=== PATIENT | male | born 1960 | race Caucasian/White ===

== ENCOUNTER 2025-02-28 09:08 | Inpatient (IN) ==
--- NOTE | 2025-02-16 09:12 | Anesthesiology Consultation ---
Date of Service February 16, 2025 Assessment & Plan (1) Encounter for pre-operative examination: - Check BSG DOS - Infectious disease screening: Per assessment on 02/16/25- No known recent infectious disease contacts or current infectious disease symptoms. Chart Review Chart Review: Acceptable Risk for Surgery and Patient NOT seen in Pre Admission Testing History Surgery Operation Date: 02/28/25 11:30 Proposed Procedures p Laparoscopic Hand Assisted Radical Nephrectomy - Right - Davide Ellis MD Height/Weight Height: 6 ft Weight: 111.13 kg Allergies Allergy/AdvReac Type Severity Reaction Status Date / Time sulfamethoxazole [Bactrim] Allergy Severe Shortness Verified 02/16/25 09:08 of breath trimethoprim [Bactrim] Allergy Severe Shortness Verified 02/16/25 09:08 of breath Medications Home Medications Medication Instructions Recorded Confirmed Last Taken omeprazole 20 mg capsule,delayed 20 mg PO QAM 03/27/20 02/16/25 09/05/21 release sildenafil 100 mg tablet 100 mg PO DAILY PRN NEEDED 07/09/21 02/16/25 Unknown metformin 500 mg tablet,extended 500 mg PO PM 01/27/23 02/16/25 Unknown release 24hr (osmotic) tamsulosin 0.4 mg capsule 0.4 mg PO PM 02/10/24 02/16/25 Unknown celecoxib 100 mg capsule 100 mg PO BID 11/11/24 02/16/25 Unknown duloxetine 60 mg capsule,delayed 60 mg PO QAM 11/11/24 02/16/25 Unknown release lisinopril 20 mg tablet 10 mg PO HS 11/11/24 02/16/25 Unknown rosuvastatin 5 mg tablet 5 mg PO HS 11/11/24 02/16/25 Unknown carbidopa 25 mg-levodopa 100 mg 1 tab PO TID #90 tabs 12/14/24 02/16/25 Unknown tablet ropinirole 0.25 mg tablet 0.25 mg PO BID #60 tabs 12/14/24 02/16/25 Unknown Past Medical History Medical History Adrenal adenoma Dating back several years per chart review Most recent imaging: renal CT 02/03/25 "A 1.3 cm left adrenal nodule is unchanged since initial CT. This is likely benign" Arthritis Cervical spinal stenosis ROM WNL per pt Complex renal cyst Diabetes mellitus, type 2 Elevated cholesterol GERD (gastroesophageal reflux disease) Hypertension Parkinsonism RLS (restless legs syndrome) Scoliosis Sleep apnea No device Tremor of both hands Past Family History Family History Mother Family history of diabetes mellitus Grandmother (Maternal) Family history of diabetes mellitus Other No family history of adverse response to anesthesia Past Surgical History Surgical History History of arthroscopy right knee History of carpal tunnel release R/L History of colonoscopy History of esophagogastroduodenoscopy (EGD) History of tonsillectomy History of tooth extraction Social History Smoking Status: Never smoker tobacco type: smokeless tobacco Do You Dip or Chew Tobacco: No (remote hx) Hx Alcohol Use: Yes Alcohol type: beer alcohol intake frequency: holidays/special occasions only Hx Substance Use: No substance use type: does not use Lab Results Anesthesia Preop Results Results Anesthesia Widget: WBC 10.23 K/ul (4.8-10.8) 02/14/25 Hgb 15.8 g/dl (14.0-18.0) 02/14/25 Hct 46.7 % (42.0-52.0) 02/14/25 Plt 258 K/uL (130-400) 02/14/25 Na 140 mmol/L (136-145) 02/14/25 K 4.4 mmol/L (3.5-5.1) 02/14/25 Cl 103 mmol/L (98-107) 02/14/25 CO2 30 mmol/L (21-32) 02/14/25 BUN 19 mg/dl (6-23) 02/14/25 Creat 1.33 mg/dl (0.6-1.4) 02/14/25 Glucose Level 177 mg/dl (70-99(Fasting)) H 02/14/25 Testing Laboratory Results Urine culture (02/14/25): no growth (preliminary) Electrocardiogram Date: 02/14/25 NSR at 99bpm. "Normal ECG" Chest X-Ray Date: 02/16/25 Findings: + NAD
[~2025-02-28 09:08] MED LIST: DEXAMETHASONE SOD INJ 4 MG/ML VIAL ONE; LIDOCAINE 2% 2 ML VIAL/AMP(20MG/ML) INFIL ONE; MIDAZOLAM HCL 1 MG/ML 2ML VIAL ONE; ONDANSETRON INJ 2 MG/ML 2 ML VIAL ONE; PROPOFOL IV EMULSION 10 MG/ML 20 ML VIAL IV ONE; ROCURONIUM BROMIDE 10 MG/ML 5 ML VIAL IV ONE
[2025-02-28] MEDS: LACTATED RINGER'S 1,000 ML IV SCH (09:39)
[2025-02-28] MEDS: HEPARIN SOD 5,000 UNIT/0.5 ML VIAL SC ONE (09:46)
[2025-02-28] MEDS: HEPARIN SOD 5,000 UNIT/0.5 ML VIAL SC SCH (09:47)
--- NOTE | 2025-02-28 10:34 | History & Physical Bridge Note ---
Date of Service February 28, 2025 History & Physical Bridge Note I have examined the patient, reviewed the History & Physical and in the interval since the performance of the History & Physical I have noted the following changes of clinical significance: no changes noted
[2025-02-28] MEDS ORDERED: LABETALOL HCL IV 5 MG/ML 20ML IV PRN (10:47)
[2025-02-28] MEDS ORDERED: PROMETHAZINE HCL 6.25 MG in SODIUM CHLORIDE 0.9% 50 ML IV PRN (10:47)
[2025-02-28] MEDS ORDERED: ATROPINE SULFATE 0.1 MG/ML 10ML SYR IV PRN (10:47)
[2025-02-28] MEDS ORDERED: ROCURONIUM BROMIDE 10 MG/ML 5 ML VIAL IV ONE (11:43)
[2025-02-28] MEDS ORDERED: PROPOFOL IV EMULSION 10 MG/ML 20 ML VIAL IV ONE (11:47)
[2025-02-28] MEDS ORDERED: PHENYLEPHRINE 100MCG/ML 5ML SYR ONE (12:08)
[2025-02-28] MEDS ORDERED: SUGAMMADEX SODIUM 200 MG/2 ML VIAL IV ONE ×2 (12:19)
[2025-02-28] MEDS: BUPIVACAINE LIPOSOME 1.3% 266 MG/20 ML VIAL ONE (12:52)
[2025-02-28] MEDS: SURGICEL ABSORB HEMOSTAT 2IN X 14IN TOP ONE (12:52)
[2025-02-28] MEDS: BUPIVACAINE 0.5 % 5 MG/1 ML MPF 30ML VIAL ONE (12:52)
[2025-02-28] MEDS: HYDROmorphone INJ 1 MG/ML SYRINGE IV PRN (13:15)
--- NOTE | 2025-02-28 13:55 | Anesthesiology Progress Note ---
Date of Service February 28, 2025 Anesthesia Post Procedure Vital Signs Vital Signs: Temp Pulse Pulse Resp BP Pulse Ox O2 Del Method 02/28/25 13:40 75 12 121/75 94 Nasal Cannula 02/28/25 13:30 76 18 123/95 97 Oxymask 02/28/25 13:20 71 18 130/76 93 Oxymask 02/28/25 13:10 36.0 C L 72 18 129/76 97 Oxymask 02/28/25 09:21 37.1 C 72 20 164/99 H 98 Room Air O2 Flow Rate 02/28/25 13:40 3 02/28/25 13:30 4 02/28/25 13:20 6 02/28/25 13:10 6 02/28/25 09:21 Pain Intensity Abdomen: Pain Intensity: 5 Transfer of Care Handoff Completed per policy Notes Mental Status: alert / awake / arousable Patient Amnestic to Procedure: Yes Nausea / Vomiting: adequately controlled Pain: adequately controlled Airway Patency, RR, SpO2: stable & adequate BP & HR: stable & adequate Hydration State: stable & adequate Anesthetic Complications: no major complications apparent
[2025-02-28 14:09] LABS: Hematocrit (blood only) 43.9 % (42.0-52.0); Hemoglobin 14.6 g/dl (14.0-18.0); Immature Granulocytes # (auto) 0.08 K/uL (0.01-0.20); Immature Granulocytes % (auto) 0.8 %; Mean Corpuscular Hemoglobin 29.2 pg (25.0-34.0); Mean Corpuscular Volume 87.8 fL (80.0-100.0); Platelet Count 203 K/uL (130-400); RDW Standard Deviation 39.9 fL (36.4-46.3); Red Blood Count 5.00 M/uL (4.70-6.10); White Blood Count 10.08 K/ul (4.8-10.8)
--- NOTE | 2025-02-28 14:09 | Operative Report ---
PG Post Operative Report Pre & Post Diagnosis Operation Date: 02/28/25 10:50 Pre-Op Diagnosis: mass of Right Kidney, suspected renal cell carcinoma Post-Op Diagnosis: mass or right kidney; suspected renal cell carcinoma I identified the patient and participated in the time-out.: Yes Procedure Operation Date: 02/28/25 10:50 Actual Procedures p Laparoscopic Hand Assisted Radical Nephrectomy - Right(Right) - Davide Ellis MD Surgeon Davide Ellis MD Pairing Machine Operator Benedicto Schneider Estimated Blood Loss 20 Findings Consistent with Post-Op Diagnosis Specimens Right kidneyroutine pathology Description of Procedure Patient was identified in the preoperative holding area and appropriate informed consents reviewed and completed the patient was transported to the operating suite. Upon arrival received appropriate preoperative antibiotics was placed in the left side down right side up lateral decubitus position with the bed flexed. He was padded and braced in appropriate fashion before sterile prep and drape. To begin the case a marked Patterson style incision of the right lower quadrant just below the level of umbilicus at incised from the lateral border of the rectus approximately 8 cm laterally on an angle. I carried this dissection through Stevenson's fascia and expose the external bleak fascia. I incised the external bleak fascia sharply and dissected through the muscle and fascial layers. I then performed the same procedure through the internal oblique as well as the transversalis. The transversalis was opened carefully and after opening the peritoneum I performed a finger sweep to confirm that there were no adhesions and bowel was clear before opening the remainder of the peritoneum further length of the incision. Utilizing retractors I was able to elevate the abdominal wall and incised the white line of Toldt below the kidney and carried this dissection up to the inferior pole. We then placed a GelPort retractor and hand access port. I was able to insufflate the abdomen through this utilizing a 12 mm port placed through the opening of the HandPort. I inspected the anterior abdominal wall and marked 2 potential port locations along the lateral border of the rectus, 1 just inferior to the costal margin another approximately 8 cm inferior to that. I then placed my hand into the abdomen and advanced these ports directly onto my hand. There is no traumatic injury. At that time I began the laparoscopic portion of the case. We continued our incision of the white line of Toldt and medialized the colon off of the kidney. The duodenum was kocherized as well. This freed the medial aspect of the kidney and I could visualize the IVC just under the liver. Before approaching the medial aspect of the kidney any further I incised the lateral portion of the kidney and the superior margin of the kidney to allow better mobility. I then dissected a plane below the kidney from the medial aspect onto the psoas muscle and utilized this to help elevate the kidney. I was able to advance my hand behind the kidney and stretch the hilar structures. Dissecting out the lateral border of the IVC I was able to encounter the inferior edge of the renal vein. I dissected around it and immediately palpated renal artery immediately posterior to the vein. I was able to expose the inferior aspect of the artery and visualize it. I passed a finger superior to the vascular structures from behind. This created an appropriate window. I then utilized a solitary staple load to control the artery and vein and block. A second staple load was fired between the medial aspect of the superior portion of the kidney and the adrenal gland. I then utilized the harmonic scalpel to continue my dissection around the superior medial aspect of the kidney followed by the true superior aspect and then ultimately the lateral aspect of the kidney. The kidney was entirely freed and there were no significant posterior adhesions. Inferiorly Gerota's fascia remained intact at that stage as did the ureter. The gonadal vein was spared. I dissected through Gerota's fascia until I was able to expose and skeletonized the ureter. I then controlled it utilizing the harmonic scalpel. Specimen was moved out of the field of dissection and hemostasis was excellent. I was able to extract the specimen through the GelPort. I then reinsufflated and inspected 1 last time confirming excellent hemostasis. We then proceeded to close the 2- 12 mm ports utilizing a Vicryl suture in a UR 6 needle. I sequentially closed the HandPort/extraction site. First utilizing a 0 Vicryl to reapproximate peritoneum and transversalis. I then used the 6-0 Vicryl to reapproximate the internal oblique. Another 0 Vicryl to reapproximate the external oblique. Stevenson's was reapproximated with 4 infiltrating all incisions with a mixture of Marcaine and Exparel. Skin incisions were closed utilizing 4-0 Monocryl subcuticular stitches. Dermabond was placed over the incisions. Patient was reversed of anesthesia and taken the recovery room in stable condition. There were no complications. Benedicto Schneider assisted throughout the surgery from incision to closure. There were no complications. I attest to the content of the Intraoperative Record and any orders documented therein. Any exceptions are noted below.
[2025-02-28] MEDS ORDERED: ONDANSETRON INJ 2 MG/ML 2 ML VIAL IV PRN (14:20)
[2025-02-28] MEDS ORDERED: HYDROmorphone INJ 0.5 MG/0.5 ML SYR IV PRN (14:20)
[2025-02-28 14:27] LABS: Anion Gap 8.0 (3-11); Blood Urea Nitrogen 26.0 mg/dl (6-23); Calcium 8.6 mg/dl (8.6-10.3); Carbon Dioxide 26.0 mmol/L (21-32); Chloride 107.0 mmol/L (98-107); Creatinine Clr Calc Pharmacy 88.5 ml/min; Glucose 159.0 mg/dl (70-99(Fasting)); Potassium 4.1 mmol/L (3.5-5.1); Sodium 141.0 mmol/L (136-145)
[2025-02-28] MEDS: SODIUM CHLORIDE 0.9% 1,000 ML IV SCH (15:14)
[2025-02-28] MEDS: CARBIDOPA/LEVODOPA 25/100MG TAB PO SCH (15:15)
[2025-02-28] MEDS: HYDROmorphone INJ 0.5 MG/0.5 ML SYR IV PRN (15:15)
[2025-02-28] MEDS: ROSUVASTATIN CALCIUM 5 MG TAB PO SCH (20:09)
[2025-02-28] MEDS: DOCUSATE SODIUM 100 MG CAP PO SCH (20:09)
[2025-02-28] MEDS: TAMSULOSIN HCL 0.4 MG CAP PO SCH (20:09)
--- NOTE | 2025-03-01 07:40 | Urology Progress Note ---
Date of Service March 01, 2025 Assessment & Plan (1) Renal mass: Plan Renal mass status post right radical nephrectomy Recovery so far is on pace Labs pending this morning Wallace out Ambulate Hold on clear liquid diet as he is mildly distended and has only passed a small amount of flatus Discharge planning will be determined based upon how he progresses this morningif uncomfortable and distended, likely keep for 1 more day, if he begins to feel better and passing flatus we will discharge him Admission and Anticipated Discharge Date Admission Date: February 28, 2025 Subjective Some abdominal discomfort overnight Passed a small amount of flatus which offered some relief Urine draining well through the catheter Has not ambulated yet Otherwise seems to be following the expected course Vitals all stable Physical Exam Physical Exam: Abdomen appropriately tender Mildly distended Incisions all appropriate without ecchymosis or drainage Wallace draining clear urine Results & Data Vital Signs (Past 12 Hours) Vital Signs Temp Pulse Resp BP Pulse Ox O2 Del Method O2 Flow Rate 03/01/25 07:17 36.8 C 79 16 141/81 H 94 Room Air 03/01/25 04:04 36.6 C 83 18 153/79 H 94 Room Air 02/28/25 22:57 36.8 C 77 18 154/82 H 96 Nasal Cannula 1.5 PG Care Time/CCT Total # of Minutes Spent Total Time Spent with Patient: Total time spent is greater than 50% in coordination of care (as documented) at patient's floor/unit and/or counseling patient: Coding Level of Care Code 75762 SUB INP/OBS CARE 2/35MIN Diagnoses Renal mass N28.89
[2025-03-01 07:48] LABS: Hematocrit (blood only) 40.3 % (42.0-52.0); Hemoglobin 13.4 g/dl (14.0-18.0); Immature Granulocytes # (auto) 0.06 K/uL (0.01-0.20); Immature Granulocytes % (auto) 0.5 %; Mean Corpuscular Hemoglobin 29.6 pg (25.0-34.0); Mean Corpuscular Volume 89.0 fL (80.0-100.0); Platelet Count 202 K/uL (130-400); RDW Standard Deviation 41.9 fL (36.4-46.3); Red Blood Count 4.53 M/uL (4.70-6.10); White Blood Count 11.15 K/ul (4.8-10.8)
[2025-03-01 08:03] LABS: Anion Gap 7.0 (3-11); Blood Urea Nitrogen 24.0 mg/dl (6-23); Calcium 8.1 mg/dl (8.6-10.3); Carbon Dioxide 27.0 mmol/L (21-32); Chloride 103.0 mmol/L (98-107); Creatinine Clr Calc Pharmacy 62.8 ml/min; Glucose 126.0 mg/dl (70-99(Fasting)); Potassium 4.0 mmol/L (3.5-5.1); Sodium 137.0 mmol/L (136-145)
[2025-03-01] MEDS: ACETAMINOPHEN 500 MG TAB PO PRN (09:22)
[2025-03-02 08:17] LABS: Hematocrit (blood only) 38.7 % (42.0-52.0); Hemoglobin 13.0 g/dl (14.0-18.0); Immature Granulocytes # (auto) 0.04 K/uL (0.01-0.20); Immature Granulocytes % (auto) 0.4 %; Mean Corpuscular Hemoglobin 29.6 pg (25.0-34.0); Mean Corpuscular Volume 88.2 fL (80.0-100.0); Platelet Count 183 K/uL (130-400); RDW Standard Deviation 40.9 fL (36.4-46.3); Red Blood Count 4.39 M/uL (4.70-6.10); White Blood Count 9.48 K/ul (4.8-10.8)
[2025-03-02 08:34] LABS: Anion Gap 6.0 (3-11); Blood Urea Nitrogen 19.0 mg/dl (6-23); Calcium 8.6 mg/dl (8.6-10.3); Carbon Dioxide 29.0 mmol/L (21-32); Chloride 102.0 mmol/L (98-107); Creatinine Clr Calc Pharmacy 59.7 ml/min; Glucose 134.0 mg/dl (70-99(Fasting)); Potassium 3.9 mmol/L (3.5-5.1); Sodium 137.0 mmol/L (136-145)
--- NOTE | 2025-03-02 09:16 | Urology Progress Note ---
Date of Service March 02, 2025 Assessment & Plan (1) Renal mass: Plan: POD 2 from Laparoscopic Hand Assisted Radical Nephrectomy hgb 13/Cr 1.63. blood pressure has been elevated Will try advancing his diet today Continue pain control Possible discharge home today Patient seen again today 11:30am. Doing well. Walking in the hallway. Feels ready for discharge. Oxycodone sent to his pharmacy. Discharge home today. Follow up as scheduled in approx 2 weeks Admission and Anticipated Discharge Date Admission Date: February 28, 2025 Subjective 64 year old POD 2 from right Laparoscopic Hand Assisted Radical Nephrectomy with Dr. Ellis. Sitting in the bedside chair this morning. Complains of some abdominal pain, abdominal pain when he takes a deep breath. He has been out of bed ambulating, passing flatus, has been able to urinate. Denies chest pain or shortness of breath. Physical Exam Physical Exam: alert and oriented. NAD. Sitting in bedside chair. Incisions well approximated. No drainage. Abdomen soft, mild tenderness particularly on the right side Respiratory: normal respiratory effort Results & Data Vital Signs (Past 12 Hours) Vital Signs Temp Pulse Resp BP Pulse Ox O2 Del Method 03/02/25 07:28 36.7 C 81 18 157/92 H 93 Room Air PG Care Time/CCT Total # of Minutes Spent Total Time Spent with Patient: Total time spent is greater than 50% in coordination of care (as documented) at patient's floor/unit and/or counseling patient: Coding Level of Care Code None Diagnoses Renal mass N28.89
--- NOTE | 2025-03-03 09:24 | Discharge Summary ---
Date of Service March 03, 2025 Principal Diagnosis Right renal mass Discharge Data Allergies Allergy/AdvReac Type Severity Reaction Status Date / Time sulfamethoxazole [Bactrim] Allergy Severe Shortness Verified 02/28/25 09:23 of breath trimethoprim [Bactrim] Allergy Severe Shortness Verified 02/28/25 09:23 of breath Procedures Performed Operation Date: 02/28/25 10:50 Actual Procedures p Laparoscopic Hand Assisted Radical Nephrectomy - Right(Right) - Davide Ellis MD Hospital Course (1) S/p nephrectomy: This is a 64 year old patient admitted on 02/28/25 and underwent laparoscopic hand assisted radical nephrectomy. He tolerated the procedure well and there were no complications. Transferred to the PACU post op and later to the med/surg floor for further care. He was given ancef for antibiotic prophylaxis. He was also given LOYDA stockings for DVT prophylaxis. Hemoglobin, hematocrit, and vital signs were monitored during their hospital stay and remained stable. Did not require any blood transfusions. There were no complications during their hospital stay. By post op day #2 the patient was tolerating a clear liquid diet and advancement of his diet, pain was reasonably controlled with oral pain medicine. On post op day #2 the patient was discharged home. He was given printed discharge instructions including new prescription for oxycodone. Follow up approximately 2 weeks post op or sooner if there are problems or concerns. Total Time Total Time Spent Total Time Spent (In Minutes): n/a Discharge Plan Discharge Items Patient Disposition: Home - Self-Care Reason For Visit: Cyst of Kidney, Unspecified Discharge Diagnosis: right nephrectomy Activity: Per Instructions section Non-emergency contact: Surgeon Call non-emergency contact if: you have any medication questions, your pain is not controlled, your pain is worsening, you have a fever, your temperature is above 101.5, your wound has increased redness and your wound has increased drainage Follow-up/Referrals: Brittany Mansfield [Primary Care Provider] - Diet: Regular Addtl Attending Provider Instructions: Please take all medications as prescribed and keep all follow-ups as scheduled. Please call our office at [phone] with any questions, concerns or need to reschedule appointments for any reason. We are happy to assist you. Recovering at home: We recommend having someone with you for the first few days after surgery to help care for you. It is okay to shower tomorrow. Please avoid swimming, bathing or using hot tub until incisions are well healed. Avoid driving until you are not requiring pain medication any further. Walk at least a few times a day. Increase your distance, as you feel able. Stairs in your home are okay. Please avoid strenuous or sexual activity until your follow-up. We recommend using stool softener (i.e. Colace) to prevent constipation and straining, especially the first two weeks post operatively. Call [facility] at [phone] if you experience: Chest pain or trouble breathing (call [phone] or go to the hospital) Fever of 101F or higher Symptoms of infection at incision site, including redness or swelling, warmth, or bad-smelling drainage If you are unable to urinate Pain that is not controlled with medicines Pending Studies at Discharge: No Stand-Alone Forms: [facility], Smoking Cessation Medications and DC Order Prescriptions: New oxycodone 5 mg Tablet 5 mg PO Q6H PRN (Reason: pain) Qty: 10 0RF Continued tamsulosin 0.4 mg capsule 0.4 mg PO PM metformin 500 mg tablet extended release 24hr 500 mg PO PM duloxetine 60 mg capsule,delayed release(DR/EC) 60 mg PO QAM rosuvastatin 5 mg tablet 5 mg PO HS ropinirole 0.25 mg tablet 0.25 mg PO BID Qty: 60 2RF carbidopa-levodopa 25-100 mg tablet 1 tab PO TID Qty: 90 2RF omeprazole 20 mg capsule,delayed release(DR/EC) 20 mg PO QAM lisinopril 20 mg tablet 10 mg PO HS Discontinued celecoxib 100 mg capsule 100 mg PO BID sildenafil 100 mg Tablet 100 mg PO DAILY PRN (Reason: NEEDED) Discharge Orders: Discharge Order (Routine); Ordered 03/02/25 Ordered By: Kyler Sanchez/Other Patient Handouts: Nephrectomy Dc Admission Data Admit Date/Time: 02/28/25 13:13 Attending Provider: Davide Ellis Admit Provider: Davide Ellis Primary Care Provider: Brittany Mansfield Other Providers: Curtis Wick Other Interventions: Discharge Summary Assessment (RN) Last Done: 03/02/25 12:19 Coding Level of Care Code 03168 IN/OBS DISCH 30 MIN/LESS Diagnoses S/p nephrectomy Z90.5
== END 2025-03-02 13:07 | disposition home or self-care (01) | DRG 658 ==
LOC: ASU 09:08 → 3E 13:13
DX: I10 Essential (primary) hypertension; E11.9 Type 2 diabetes mellitus without complications; K21.9 Gastro-esophageal reflux disease without esophagitis; E78.5 Hyperlipidemia, unspecified; F17.220 Nicotine dependence, chewing tobacco, uncomplicated; Z79.899 Other long term (current) drug therapy; Z79.84 Long term (current) use of oral hypoglycemic drugs; C64.1 Malignant neoplasm of right kidney, except renal pelvis

== ENCOUNTER 2025-08-14 16:21 | Observation (INO) ==
--- NOTE | 2025-08-14 16:50 | Emergency Department Note ---
Impression & Plan Acute intractable headache, Neck pain ED Provider Note NAME: ATUL WHITE AGE: 64 SEX: M : 1960 ARRIVES VIA: Walk-In INFORMANT: Patient, ED PROVIDER(S): Roland Ko DO CHIEF COMPLAINT: Headache HPI: The patient is a 64-year-old male who presented to the emergency department for an evaluation of a headache. The patient notices an occipital headache which began over the last 2 to 3 days. He states it is very severe at this time. It hurts when he moves his head. He denies having any trauma. He denies having any weakness in the arms or legs. 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 He denies having any specific neck issues. He does have a history of a nephrectomy because of her renal mass. It turned out to be a slow-growing cancer with no spread at this time. The patient is been taking Tylenol with only minimal relief of symptoms. ROS: See above HPI for pertinent positives & negatives. A total of 10 systems reviewed and were otherwise negative. PAST MEDICAL HISTORY: See Below PAST SURGICAL HISTORY: See Below FAMILY HISTORY: See Below SOCIAL HISTORY: See Below HOME MEDICATIONS: See Below ALLERGIES: See Below VITALS: See Below PHYSICAL EXAMINATION: GENERAL: The patient is awake and alert. He appears anxious and uncomfortable. EYES: The conjunctivae are clear. The pupils are round and reactive. EARS, NOSE, MOUTH AND THROAT: The nose is without any evidence of any deformity. NECK: There was tenderness in the upper cervical spine. There was no step-off. Range of motion was limited secondary to significant pain. RESPIRATORY: Normal respiratory effort is noted there is no evidence of wheezing rhonchi or rales CARDIOVASCULAR: Regular rate and rhythm noted there no murmurs rubs or gallops normal S1 normal S2. GASTROINTESTINAL: The abdomen is soft. Abdomen is nontender. PELVIS: The Pelvis is stable. No tenderness to palpation is noted. BACK: No midline tenderness or or step-off noted range of motion in flexion extension as well as rotation no signs of muscle spasm noted MUSCULOSKELETAL/EXTREMITIES: There is no evidence of gross deformity full range of motion is noted in the hips and shoulders. SKIN: There is no obvious evidence of any rash. There are no petechiae, pallor or cyanosis noted. NEUROLOGIC: Patient is awake alert and oriented x3. 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 Gait was steady. Etric patellar reflexes are 2+ bilaterally MEDICAL DECISION MAKING: The patient is a 64-year-old male who presented to the emergency department for an evaluation of headache. The patient had significant neck pain which began to worsen. It now includes his frontal region as well. The patient does not have any obvious focal neurologic deficit. I discussed the patient's laboratory and radiographic studies with him. He was treated with a migraine cocktail as well as other pain medication while in the emergency department. On reevaluation he was somewhat improved. Given the patient's ongoing headache and his age and comorbidities I did feel the patient may require further inpatient management. This reason [facility] to evaluate the patient in the emergency department for further management and disposition. Triage Nursing notes reviewed. Prior medical records reviewed Vital Signs: reviewed and remarkable for elevated blood pressure. Differential diagnosis: Migraine headache, meningitis, sinusitis, CO exposure, ICH, SAH, infection, tumor, headache, sinus thrombosis, arterial dissection, as well as other pathologies. ER treatment provided: See below Diagnostics interpreted by me: ECG: EKG was obtained in the emergency department. My interpretation is normal sinus rhythm at 100 bpm. There is no ectopy. Nonspecific ST abnormalities were appreciated. This was compared to a tracing from February 14, 2025. No changes were noted. Cardiac Monitoring: An order was placed for continuous cardiac monitoring. The monitor shows a rate of 85 bpm with sinus rhythm. Laboratory studies: As stated above and show below. Imaging studies: See below. Radiographic imaging was reviewed by myself Consultation(s): I discussed this case with Dr. Erazo who [facility] 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 This is likely benign" RLS (restless legs syndrome) Cervical spinal stenosis ROM WNL per pt Parkinsonism Scoliosis Arthritis GERD (gastroesophageal reflux disease) Diabetes mellitus, type 2 Sleep apnea No device Elevated cholesterol Hypertension Surgical History History of carpal tunnel release R/L History of arthroscopy right knee History of esophagogastroduodenoscopy (EGD) History of colonoscopy History of tooth extraction History of tonsillectomy Family History Mother Family history of diabetes mellitus Grandmother (Maternal) Family history of diabetes mellitus Other No family history of adverse response to anesthesia Social History Smoking Status: Never smoker Tobacco Type: Smokeless Tobacco (Dip or Chew) Second Hand Exposure: No; Do You Dip or Chew Tobacco: No (remote hx); Hx Alcohol Use: Yes Alcohol type: beer Hx Substance Use: No Preferred Language: Lao Communication Ability: Effective Pattern Setter Required: No Beliefs That Will Affect Care: None Current Living Situation: Spouse Feels Safe at Home: Yes Assistive Devices: CPAP Allergies Allergies Allergy/AdvReac Type Severity Reaction Status Date / Time sulfamethoxazole [Bactrim] Allergy Severe Shortness Verified 08/07/25 09:58 of breath trimethoprim [Bactrim] Allergy Severe Shortness Verified 08/07/25 09:58 of breath Home Meds Home Medications Medication Instructions Recorded Confirmed omeprazole 20 mg capsule,delayed 20 mg PO QAM 03/27/20 04/20/25 release duloxetine 60 mg capsule,delayed 60 mg PO QAM 11/11/24 04/20/25 release lisinopril 20 mg tablet 10 mg PO HS 11/11/24 04/20/25 rosuvastatin 5 mg tablet 5 mg PO HS 11/11/24 04/20/25 cyanocobalamin (vitamin B-12) PO 07/26/25 07/26/25 finasteride 5 mg tablet 5 mg PO DAILY 07/26/25 07/26/25 metformin 750 mg tablet 750 mg PO DAILY 07/27/25 07/27/25 Previous Rx's Medication Instructions Recorded oxycodone 5 mg tablet 5 mg PO Q6H PRN pain #10 tabs 03/02/25 tamsulosin 0.4 mg capsule 0.4 mg PO DAILY #90 caps 03/29/25 carbidopa 25 mg-levodopa 100 mg 1 tab PO TID #270 tabs 04/20/25 tablet ropinirole 0.25 mg tablet 0.25 mg PO BID #60 tabs 06/05/25 amlodipine 5 mg tablet 5 mg PO DAILY #90 tabs 07/27/25 Results & Data (ED) Vital Signs Vital Signs - 24 hr 08/14/25 16:32 08/14/25 17:44 08/14/25 17:57 Temperature 36.4 C L Temperature Source Temporal Artery Scan Pulse Rate 107 H 97 H 95 H Pulse Rate [Apical] Pulse Rate from SpO2 Sensor 95 H Respiratory Rate 20 26 H Respiratory Effort / Characteristics Blood Pressure 173/91 H 171/98 H Blood Pressure [Right Arm] Blood Pressure Mean 118 122 Blood Pressure Mean [Right Arm] Pulse Oximetry 97 95 Oxygen Delivery Method Room Air Sepsis Recent Fever Within 48 Hours No Sepsis New/Unexplained Change in Mental Status N/A Sepsis Action Taken by Nursing No Action Required 08/14/25 18:00 08/14/25 18:30 08/14/25 20:00 Temperature Temperature Source Pulse Rate 97 H 97 H Pulse Rate [Apical] 97 H Pulse Rate from SpO2 Sensor 97 H 96 H Respiratory Rate 22 29 H 16 Respiratory Effort / Characteristics Non-Labored Spontaneous Blood Pressure 174/102 H 196/114 H Blood Pressure [Right Arm] 153/93 H Blood Pressure Mean 126 141 Blood Pressure Mean [Right Arm] 113 Pulse Oximetry 96 97 92 Oxygen Delivery Method Room Air Sepsis Recent Fever Within 48 Hours Sepsis New/Unexplained Change in Mental Status Sepsis Action Taken by Nursing 08/14/25 21:26 08/14/25 22:00 Temperature Temperature Source Pulse Rate 91 H Pulse Rate [Apical] 85 Pulse Rate from SpO2 Sensor Respiratory Rate 20 Respiratory Effort / Characteristics Blood Pressure Blood Pressure [Right Arm] 181/99 H Blood Pressure Mean Blood Pressure Mean [Right Arm] 126 Pulse Oximetry 92 Oxygen Delivery Method Room Air Sepsis Recent Fever Within 48 Hours Sepsis New/Unexplained Change in Mental Status Sepsis Action Taken by Long-Term Medications Current Medication List: was personally reviewed by me Laboratory Data Attestation: I reviewed the patient's lab results. 08/14/25 17:35 08/14/25 17:35 Lab Results 08/14/25 08/14/25 Range/Units 17:35 17:39 WBC 12.87 H (4.8-10.8) K/ul RBC 4.76 (4.70-6.10) M/uL Hgb 14.1 (14.0-18.0) g/dL POC Hgb 14.3 (14.0-18.0) g/dl Hct 41.2 L (42.0-52.0) % POC Hct 42 (42-52) % MCV 86.6 (80.0-100.0) fL MCH 29.6 (25.0-34.0) pg MCHC 34.2 (32.0-36.0) g/dL RDW Std Deviation 38.5 (36.4-46.3) fL RDW Coeff of Emily 11.9 (11.5-14.5) % Plt Count 259 (130-400) K/uL MPV 9.5 (9.4-12.4) fL Immature Gran % (Auto) 0.5 % Neut % (Auto) 73.3 % Lymph % (Auto) 14.3 % Swisher % (Auto) 11.0 % Eos % (Auto) 0.4 % Baso % (Auto) 0.5 % Neut # (Auto) 9.44 H (1.40-6.50) K/uL Lymph # (Auto) 1.84 (1.20-3.40) K/uL Swisher # (Auto) 1.42 H (0.11-0.59) K/uL Eos # (Auto) 0.05 (0.00-0.50) K/uL Baso # (Auto) 0.06 (0.00-0.20) K/uL Immature Gran # (Auto) 0.06 (0.01-0.20) K/uL ESR 56 H (0-20) mm/hr PT 10.4 (9.0-12.0) Seconds INR 1.0 (0.9-1.1) APTT 29 (21-31) Seconds PTT Ratio 1.1 POC Sodium 137 (135-144) mmol/L Sodium 136 (136-145) mmol/L POC Potassium 4.3 (3.3-5.0) mmol/L Potassium 4.3 (3.5-5.1) mmol/L POC Chloride 102 (101-112) mmol/L Chloride 101 (98-107) mmol/L Carbon Dioxide 26 (21-32) mmol/L POC Total CO2 23 L (24-31) mmol/L Anion Gap 9 (3-11) POC Anion Gap 18.0 (16-25) mmol/L POC BUN 32 H (7-18) mg/dl BUN 29 H (6-23) mg/dl Creatinine 1.47 H (0.6-1.4) mg/dl POC Creatinine 1.6 H (0.6-1.3) mg/dl Est Cr Clr Drug Dosing 63.5 ml/min eGFR 52.93 BUN/Creatinine Ratio 19.7 (10-20) Glucose 157 H (70-99(Fasting)) mg/dl POC Glucose (other) 150 H (70-99) mg/dl Calcium 9.2 (8.6-10.3) mg/dl POC Ioniz Calcium Meghana 1.14 (1.12-1.32) mmol/l Magnesium 2.1 (1.7-2.4) mg/dl Total Bilirubin 0.6 (0.2-1.0) mg/dl AST 18 (13-39) U/L ALT 27 (7-52) U/L Alkaline Phosphatase 63 (34-104) U/L Troponin I High Sens 6.5 (0-20) pg/ml C-Reactive Protein 5.55 H (0-0.5) mg/dl Total Protein 8.0 (6.0-8.3) gm/dl Albumin 4.4 (3.4-5.0) gm/dl Globulin 3.6 (2.5-4.0) gm/dl Albumin/Globulin Ratio 1.2 (0.9-2) Administered Medications Discontinued Medications Dexamethasone Sodium Phosphate (DexamethasonePf 10 Mg/Ml Vial) 10 mg IV NOW ONE Stop: 08/14/25 19:18 Last Admin: 08/14/25 19:28 Dose: 10 mg Documented By: IGLESIA Diphenhydramine HCl (Diphenhydramine 50 Mg/Ml Vial) 25 mg IV NOW STA Stop: 12/22/25 16:43 Last Admin: 08/14/25 17:55 Dose: 25 mg Documented By: AKILA Promethazine HCl (Phenergan) 12.5 mg in 50.5 mls @ 202 mls/hr IV NOW STA Stop: 08/14/25 16:56 Last Infusion: 08/14/25 18:29 Dose: Infused Documented By: Admin: 08/14/25 17:55 Dose: 202 mls/hr Documented By: AKILA Ioversol (Optiray 320 125ml) 119 ml IV ONCE ONE Stop: 08/14/25 19:05 Last Admin: 08/14/25 19:04 Dose: 119 ml Documented By: EVERETT Ketorolac Tromethamine (Ketorolac Tromethamine 15 Mg/Ml Vial) 10 mg IV NOW ONE Stop: 08/14/25 19:18 Last Admin: 08/14/25 19:27 Dose: 10 mg Documented By: IGLESIA Morphine Sulfate (Morphine Sulfate 4 Mg/Ml 1 Ml Carp\\Vial) 4 mg IV NOW STA Stop: 08/14/25 19:18 Last Admin: 08/14/25 19:28 Dose: 4 mg Documented By: IGLESIA Imaging Data Attestation: I personally reviewed and interpreted this imaging study as follows: My Impression: 1 view chest x-ray was obtained in the emergency department. My interpretation is no free air or definite infiltrate, final report below. Radiologist's Impression: Chest X-Ray 08/14/25 16:43 EXAM: X-ray chest one-view portable CLINICAL HISTORY: Neurodeficit, acute stroke suspected, pain in head and upper back PRIORS: 02/14/2025, 03/27/2020 TECHNIQUE: Erect portable AP FINDINGS: The chest is well-expanded. No airspace consolidation, effusion or congestive changes. Heart size is normal. No pneumothorax. Trachea is patent. Osseous structures demonstrate no acute abnormality. No radiopaque foreign body. IMPRESSION: No plain film evidence of an acute cardiopulmonary process. Electronically signed by Kera Gomez 08-14-2025 6:[address] 08/14/25 16:43 Exam(s): CT HEAD Without Contrast EXAM: CT Head Without Intravenous Contrast CLINICAL HISTORY: Reason for exam: neuro deficit, acute stroke suspected. TECHNIQUE: Axial computed tomography images of the head/brain without intravenous contrast. CTDI is 36.31 mGy and DLP is 546.36 mGy-cm. Automated exposure control was utilized for the study. A dose lowering technique was utilized adhering to the principles of ALARA. Mild motion/artifact. COMPARISON: Head CT 03/27/2020 and MRI brain 11/23/2024. FINDINGS: Brain: Mild atrophy and mild, chronic white matter disease, stable. Small, chronic right medial thalamic lacunar infarct. No mass effect or acute infarct. No acute hemorrhage. Ventricles: No hydrocephalus or midline shift. Bones/joints: No skull fracture. Soft tissues: No scalp hematoma. Visualized Sinuses: Clear. Mastoid air cells: No mastoid effusion. IMPRESSION: 1. No acute intracranial abnormality. Electronically signed by: Christina Zelaya M.D. 08/14/25 21:00 PM Head CTA 08/14/25 16:43 Exam(s): CTA HEAD With Contrast IV Amt: 119ml opti 320 EXAM: CT Angiography Head With Intravenous Contrast CLINICAL HISTORY: Reason for exam: neuro deficit, acute stroke suspected. TECHNIQUE: Axial computed tomographic angiography images of the head with intravenous contrast. CTDI is 76.94 mGy and DLP is 1116.8 mGy-cm. Automated exposure control was utilized for the study. A dose lowering technique was utilized adhering to the principles of ALARA. MIP reconstructed images were created and reviewed. CONTRAST: Patient received 119ml opti 320 of IV contrast COMPARISON: Head CT same day. FINDINGS: Right internal carotid artery: Patent. Right anterior cerebral artery: Patent. Right middle cerebral artery: Patent. Right posterior cerebral artery: Patent. origin. Right vertebral artery: Patent. Left internal carotid artery: Patent. Left anterior cerebral artery: Patent. Left middle cerebral artery: Patent. Left posterior cerebral artery: Patent. origin. Left vertebral artery: Patent. Basilar artery: Patent. Other: IMPRESSION: 1. No aneurysm or large vessel occlusion. Electronically signed by: Christina Zelaya M.D. 08/14/25 21:02 PM Neck CTA 08/14/25 16:43 Exam(s): CTA NECK With Contrast IV Amt: 119ml opti 320 EXAM: CT Angiography Neck With Intravenous Contrast CLINICAL HISTORY: Reason for exam: neuro deficit, acute stroke suspected. TECHNIQUE: Routine carotid CT angiography protocol was performed with intravenous contrast. NASCET criteria using the distal ICAs for comparison were used for evaluation of stenoses. CTDI is 76.94 mGy and DLP is 1116.8 mGy-cm. Automated exposure control was utilized for the study. A dose lowering technique was utilized adhering to the principles of ALARA. MIP reconstructed images were created and reviewed. CONTRAST: Patient received 119ml opti 320 of IV contrast COMPARISON: None. FINDINGS: Right common carotid artery: Patent. Right internal carotid artery: Patent. Right vertebral artery: Patent. Left common carotid artery: Patent. Left internal carotid artery: Patent. Left vertebral artery: Patent. Left dominant system, though both vertebrals are diminutive due to normal variant [id number] anatomy. Other: No carotid atherosclerosis or stenosis. IMPRESSION: 1. No dissection, occlusion, or significant stenosis. CAROTID STENOSIS REFERENCE USING NASCET CRITERIA: % ICA stenosis = (1 - narrowest ICA diameter/diameter of distal cervical ICA) x 100. Mild - <50% stenosis. Moderate - 50-69% stenosis. Severe - 70-94% stenosis. Near occlusion - 95-99% stenosis. Occluded - 100% stenosis. Electronically signed by: Christina Zelaya M.D. 08/14/25 21:03 PM Discharge Plan Visit Data Chief Complaint: Head Pain Stated Complaint: HEAD/NECK PAIN, SPINAL, MIGRAINE/HEADACHE ED Provider: Roland Ko Discharge Problem: Acute intractable headache, Neck pain Patient Disposition: Being Evaluated by Hospitalist Condition: Fair Forms Stand Alone Forms: My [facility] Prescriptions Prescriptions: No Action ropinirole 0.25 mg tablet 0.25 mg PO BID Qty: 60 2RF duloxetine 60 mg capsule,delayed release(DR/EC) 60 mg PO QAM rosuvastatin 5 mg tablet 5 mg PO HS tamsulosin 0.4 mg capsule 0.4 mg PO DAILY Qty: 90 3RF carbidopa-levodopa 25-100 mg tablet 1 tab PO TID Qty: 270 3RF metformin 750 mg tablet 750 mg PO DAILY amlodipine 5 mg tablet 5 mg PO DAILY Qty: 90 3RF cyanocobalamin (vitamin B-12) PO finasteride 5 mg tablet 5 mg PO DAILY omeprazole 20 mg capsule,delayed release(DR/EC) 20 mg PO QAM lisinopril 20 mg tablet 10 mg PO HS Hold Instructions: Home Medication placed on hold at Doctor's office oxycodone 5 mg Tablet 5 mg PO Q6H PRN (Reason: pain) Qty: 10 0RF Referrals Referrals: Brittany Mansfield [Primary Care Provider] -
[2025-08-14 17:49] LABS: Hematocrit (blood only) 41.2 % (42.0-52.0); Hemoglobin 14.1 g/dL (14.0-18.0); Immature Granulocytes # (auto) 0.06 K/uL (0.01-0.20); Immature Granulocytes % (auto) 0.5 %; Mean Corpuscular Hemoglobin 29.6 pg (25.0-34.0); Mean Corpuscular Volume 86.6 fL (80.0-100.0); Platelet Count 259 K/uL (130-400); RDW Standard Deviation 38.5 fL (36.4-46.3); Red Blood Count 4.76 M/uL (4.70-6.10); White Blood Count 12.87 K/ul (4.8-10.8)
[2025-08-14] MEDS: PROMETHAZINE 12.5 MG/50.5 ML BAG IV STA (17:55)
[2025-08-14] MEDS: diphenhydrAMINE 50 MG/ML VIAL IV STA (17:55)
[2025-08-14 18:07] LABS: Alanine Aminotransferase 27.0 U/L (7-52); Albumin Globulin Ratio 1.2 (0.9-2); Albumin Level 4.4 gm/dl (3.4-5.0); Alkaline Phosphatase 63.0 U/L (34-104); Anion Gap 9.0 (3-11); Bilirubin,Total 0.6 mg/dl (0.2-1.0); Blood Urea Nitrogen 29.0 mg/dl (6-23); Calcium 9.2 mg/dl (8.6-10.3); Carbon Dioxide 26.0 mmol/L (21-32); Chloride 101.0 mmol/L (98-107); Creatinine Clr Calc Pharmacy 63.5 ml/min; Globulin 3.6 gm/dl (2.5-4.0); Glucose 157.0 mg/dl (70-99(Fasting)); Magnesium 2.1 mg/dl (1.7-2.4); Potassium 4.3 mmol/L (3.5-5.1); Sodium 136.0 mmol/L (136-145); Total Protein 8.0 gm/dl (6.0-8.3)
[2025-08-14 18:18] LABS: INR 1.0 (0.9-1.1); Partial Thromboplastin Time 29 Seconds (21-31); Prothrombin Time 10.4 Seconds (9.0-12.0)
--- NOTE | 2025-08-14 18:31 | XRay Report ---
EXAM: X-ray chest one-view portable CLINICAL HISTORY: Neurodeficit, acute stroke suspected, pain in head and upper back PRIORS: 02/14/2025, 03/27/2020 TECHNIQUE: Erect portable AP FINDINGS: The chest is well-expanded. No airspace consolidation, effusion or congestive changes. Heart size is normal. No pneumothorax. Trachea is patent. Osseous structures demonstrate no acute abnormality. No radiopaque foreign body. IMPRESSION: No plain film evidence of an acute cardiopulmonary process. Electronically signed by Kera Gomez 08-14-2025 6:30 PM
[2025-08-14] MEDS: OPTIRAY 320 125ml IV ONE (19:04)
[2025-08-14] MEDS: KETOROLAC TROMETHAMINE 15 MG/ML VIAL IV ONE (19:27)
[2025-08-14] MEDS: dexAMETHasone**PF** 10 MG/ML VIAL IV ONE (19:28)
[2025-08-14] MEDS: MoRPHine SULFATE 4 MG/ML 1 ML CARP\\VIAL IV STA (19:28)
--- NOTE | 2025-08-14 21:01 | CT Scan Report ---
Exam(s): CT HEAD Without Contrast EXAM: CT Head Without Intravenous Contrast CLINICAL HISTORY: Reason for exam: neuro deficit, acute stroke suspected. TECHNIQUE: Axial computed tomography images of the head/brain without intravenous contrast. CTDI is 36.31 mGy and DLP is 546.36 mGy-cm. Automated exposure control was utilized for the study. A dose lowering technique was utilized adhering to the principles of ALARA. Mild motion/artifact. COMPARISON: Head CT 03/27/2020 and MRI brain 11/23/2024. FINDINGS: Brain: Mild atrophy and mild, chronic white matter disease, stable. Small, chronic right medial thalamic lacunar infarct. No mass effect or acute infarct. No acute hemorrhage. Ventricles: No hydrocephalus or midline shift. Bones/joints: No skull fracture. Soft tissues: No scalp hematoma. Visualized Sinuses: Clear. Mastoid air cells: No mastoid effusion. IMPRESSION: 1. No acute intracranial abnormality. Electronically signed by: Christina Zelaya M.D. 08/14/25 21:00 PM
--- NOTE | 2025-08-14 21:03 | CT Scan Report ---
Exam(s): CTA HEAD With Contrast IV Amt: 119ml opti 320 EXAM: CT Angiography Head With Intravenous Contrast CLINICAL HISTORY: Reason for exam: neuro deficit, acute stroke suspected. TECHNIQUE: Axial computed tomographic angiography images of the head with intravenous contrast. CTDI is 76.94 mGy and DLP is 1116.8 mGy-cm. Automated exposure control was utilized for the study. A dose lowering technique was utilized adhering to the principles of ALARA. MIP reconstructed images were created and reviewed. CONTRAST: Patient received 119ml opti 320 of IV contrast COMPARISON: Head CT same day. FINDINGS: Right internal carotid artery: Patent. Right anterior cerebral artery: Patent. Right middle cerebral artery: Patent. Right posterior cerebral artery: Patent. origin. Right vertebral artery: Patent. Left internal carotid artery: Patent. Left anterior cerebral artery: Patent. Left middle cerebral artery: Patent. Left posterior cerebral artery: Patent. origin. Left vertebral artery: Patent. Basilar artery: Patent. Other: IMPRESSION: 1. No aneurysm or large vessel occlusion. Electronically signed by: Christina Zelaya M.D. 08/14/25 21:02 PM
--- NOTE | 2025-08-14 21:04 | CT Scan Report ---
Exam(s): CTA NECK With Contrast IV Amt: 119ml opti 320 EXAM: CT Angiography Neck With Intravenous Contrast CLINICAL HISTORY: Reason for exam: neuro deficit, acute stroke suspected. TECHNIQUE: Routine carotid CT angiography protocol was performed with intravenous contrast. NASCET criteria using the distal ICAs for comparison were used for evaluation of stenoses. CTDI is 76.94 mGy and DLP is 1116.8 mGy-cm. Automated exposure control was utilized for the study. A dose lowering technique was utilized adhering to the principles of ALARA. MIP reconstructed images were created and reviewed. CONTRAST: Patient received 119ml opti 320 of IV contrast COMPARISON: None. FINDINGS: Right common carotid artery: Patent. Right internal carotid artery: Patent. Right vertebral artery: Patent. Left common carotid artery: Patent. Left internal carotid artery: Patent. Left vertebral artery: Patent. Left dominant system, though both vertebrals are diminutive due to normal variant [id number] anatomy. Other: No carotid atherosclerosis or stenosis. IMPRESSION: 1. No dissection, occlusion, or significant stenosis. CAROTID STENOSIS REFERENCE USING NASCET CRITERIA: % ICA stenosis = (1 - narrowest ICA diameter/diameter of distal cervical ICA) x 100. Mild - <50% stenosis. Moderate - 50-69% stenosis. Severe - 70-94% stenosis. Near occlusion - 95-99% stenosis. Occluded - 100% stenosis. Electronically signed by: Christina Zelaya M.D. 08/14/25 21:03 PM
--- NOTE | 2025-08-14 22:30 | History & Physical Report ---
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 Evaluation significant for mild leukocytosis at 12.7 and elevated ESR and CRP at 56 and 5.55 respectively. He does have a slight HERON as well with a creatinine of 1.47. Head imaging does not reveal acute findings. Admission for headache management as well as further imaging of the brain. #Intractable acute headache and neck pain Headache worsening over the weekend, no prior history of migraines except for in childhood. Slightly hypertensive, did not take evening medications. Received dexamethasone, diphenhydramine, ketorolac, promethazine, morphine in ED for pain, treated as migraine. Suspect mainly MSK rather than migrainous or acute bleed, however will continue to provide further pain management pending MRI results and improvement of pain. Allow permissive HTN until MRI results. Do not suspect temporal arteritis at this time, no meningeal signs else young, no focal deficits, no recent trauma. Likely MSK related. 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 Follows with nephro, most recent visit 07/27/2025, Cr at that time was elevated from his baseline, ? new baseline following nephrectomy but given that this is still elevated, will manage with IVF for now and see how he responds; Did not receive IVF in ED. - Cr 1.47, BUN 29 - BMP am - UA pending - Avoid nephrotoxins - IVF LR @ 80 mL/hr #T2DM H/o T2DM, at home regimen include metformin. - Glucose on arrival 157; A1c pending - Hold home regimen, deferred SSI at time of admission - BSG daily - Adjust regimen as needed #HTN- Amlodipine - hold, pending MRI -- add back if MRI w/o evidence CVA #PD- Carbidopa-levodopa - continue #Psych- Duloxetine - continue #- Finasteride, tamsulosin - continue #GERD- Omeprazole - continue #HLD- Rosuvastatin - continue Dispo: Obs, med/tele VTE Prophylaxis: SCDs This document was dictated utilizing [employer]. Please excuse any grammatical errors that may be secondary to use of this software. 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 Patient states that the pain actually started "weeks ago" and it was just a "wee little bit" that seem to have worsened over the weekend. States that he felt that his back needed to be put in so he went to his chiropractor and this was a few days ago and there was no neck manipulation. However, he was starting to have some more discomfort the day COMMUNICATIONS STRATEGIST and then there was some neck manipulation by his chiropractor but just a slight flexion of his neck without aggressive movements, per the patient. States that since then, his neck has just continued to become more tense rather than improved with pain. He does have a history of scoliosis so he thought that this was secondary to that, and he also reports sleeping on his neck in a "weird way "approximately 1 week COMMUNICATIONS STRATEGIST. States that the pain has started at the base of his skull and spread up towards the top of his head and into the front of his forehead and a line like fashion. Described as someone "sticking something in there all the time", but no nerve pain or electric pain otherwise. He has not had any visual changes. No focal deficits. He states at its worst, the pain is an 8 out of 10 on the pain scale, but at the present it is a 2 out of 10 on the pain scale. He has not had any nausea or vomiting with this. He states that he has a history of migraines occurring when he was approximately 5 to 6 years old but has not had anything since then. He has not had any recent trauma or impact to his head. Sometimes when he sleeps on his neck in an abnormal position, he will wake up with back pain. States that this is possibly what started it, but it just has not gotten better. He is not having any URI symptoms or fever/chills. When he gets up to walk, the pain is worsened. It was spreading to his bilateral shoulders, this has resolved some and he is able to lift his arms above his shoulders now 1 point exactly where the pain is. No changes otherwise. He did have a right nephrectomy in February 2025 after there was a mass found thought to be cancer, it was removed and patient has been stable since. He follows with nephrology and did have a recently elevated creatinine, so lisinopril was discontinued. Patient states that he is without chest pain, SOB, palpitations, abdominal pain, N/B/D/C, numbness/tingling, fever/chills, URI symptoms, LUTS, weakness, syncope, or falls. ED evaluation revealed CBC with leukocytosis 12.7, H&H 14.1/41.2, stable platelets; ESR 56, CRP 5.55; PT/INR WNL; CMP BUN 29, creatinine 1.47, glucose 157; troponin 6.5; magnesium 2.1, calcium 9.2; CXR no acute findings; head CT no acute findings; head CTA no aneurysm or LVO; neck CTA no dissection, occlusion, or significant stenosis; EKG NSR at 100 bpm.; Provided with promethazine 12.5 mg IV, morphine 4 mg IV, ketorolac 10 mg IV, diphenhydramine 25 mg IV, dexamethasone 10 mg IV in ED. Please see Dr. Morris attestation for adjustments/additions to treatment plan. Allergies Allergy/AdvReac Type Severity Reaction Status Date / Time sulfamethoxazole [Bactrim] Allergy Severe Shortness Verified 08/07/25 09:58 of breath trimethoprim [Bactrim] Allergy Severe Shortness Verified 08/07/25 09:58 of breath Home Medications Medication Instructions Recorded Confirmed Type omeprazole 20 mg capsule,delayed 20 mg PO QAM 03/27/20 08/14/25 History release duloxetine 60 mg capsule,delayed 60 mg PO QAM 11/11/24 08/14/25 History release rosuvastatin 5 mg tablet 5 mg PO HS 11/11/24 08/14/25 History tamsulosin 0.4 mg capsule 0.4 mg PO DAILY #90 caps 03/29/25 08/14/25 Rx carbidopa 25 mg-levodopa 100 mg 1 tab PO TID #270 tabs 04/20/25 08/14/25 Rx tablet cyanocobalamin (vitamin B-12) PO 07/26/25 07/26/25 History finasteride 5 mg tablet 5 mg PO DAILY 07/26/25 08/14/25 History amlodipine 5 mg tablet 5 mg PO DAILY #90 tabs 07/27/25 08/14/25 Rx metformin 750 mg tablet 500 mg PO BID 07/27/25 08/14/25 History cyclobenzaprine 5 mg tablet 5 mg PO TID PRN muscle spasm #30 08/15/25 Rx tabs Past Med/Surg History Problem List Renal insufficiency Neck pain (Acute) Acute intractable headache (Acute) Osteoarthritis HERON (acute kidney injury) Renal lesion Benign hypertension Hernia 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 This is likely benign" RLS (restless legs syndrome) Cervical spinal stenosis ROM WNL per pt Parkinsonism Scoliosis Arthritis GERD (gastroesophageal reflux disease) Diabetes mellitus, type 2 Sleep apnea No device Elevated cholesterol Hypertension Surgical History History of carpal tunnel release R/L History of arthroscopy right knee History of esophagogastroduodenoscopy (EGD) History of colonoscopy History of tooth extraction History of tonsillectomy Family History Mother Family history of diabetes mellitus Grandmother (Maternal) Family history of diabetes mellitus Other No family history of adverse response to anesthesia Social History Smoking Status: Never smoker Tobacco Type: Smokeless Tobacco (Dip or Chew) Second Hand Exposure: No; Do You Dip or Chew Tobacco: No (remote hx); Hx Alcohol Use: Yes Alcohol type: beer Hx Substance Use: No Preferred Language: [place] Communication Ability: Effective Lvn Home Health Required: No Beliefs That Will Affect Care: None Current Living Situation: Spouse Feels Safe at Home: Yes Safety Concerns: Feels Safe At This Time Assistive Devices: CPAP, Glasses and Hearing Aid - Bilateral Review of Systems Review of Systems: All systems reviewed & are unremarkable except as noted in Subjective Physical Exam Physical Exam: General: No acute distress Skin: Warm and dry Head: Normocephalic, atraumatic; no temporal tenderness bilaterally Eyes: PERRL, conjunctivae clear, sclera non-icteric ENT: External ear and ear canal without swelling; nose atraumatic; good dentition, tongue normal appearance, pharynx normal Neck: Supple, no LAD; tender to palpation, unable to bring neck to chin secondary to pain, tense trapezius and cervical muscles Cardio: RRR, no M/G/R, S1 and S2 normal Resp: No respiratory distress, Lungs CTA in all lobes bilaterally, no wheezes, rales, or rhonchi Abdomen: Soft, symmetric, nontender; No masses or hepatosplenomegaly; Bowel sounds normoactive MSK: No deformities; pulses palpable and equal; no edema. Neuro: Awake, alert; Sensation intact bilaterally; CN grossly intact; No focal deficits Psych: Appropriate mood and affect; good judgement and insight. present in room at time of visit. Results & Data Results & Data Vital Signs (Past 12 Hours) Vital Signs Temp Pulse Pulse Resp BP BP Pulse Ox 08/14/25 22:00 85 20 181/99 H 92 08/14/25 21:26 91 H 08/14/25 20:00 97 H 16 153/93 H 92 08/14/25 18:30 97 H 29 H 196/114 H 97 08/14/25 18:00 97 H 22 174/102 H 96 08/14/25 17:57 95 H 26 H 171/98 H 95 08/14/25 17:44 97 H 08/14/25 16:32 36.4 C L 107 H 20 173/91 H 97 O2 Del Method 08/14/25 22:00 Room Air 08/14/25 21:26 08/14/25 20:00 Room Air 08/14/25 18:30 08/14/25 18:00 08/14/25 17:57 08/14/25 17:44 08/14/25 16:32 Room Air Laboratory Results 08/14/25 08/14/25 17:39 17:35 WBC 12.87 H RBC 4.76 Hgb 14.1 POC Hgb 14.3 Hct 41.2 L POC Hct 42 MCV 86.6 MCH 29.6 MCHC 34.2 RDW Std Deviation 38.5 RDW Coeff of Emily 11.9 Plt Count 259 MPV 9.5 Immature Gran % (Auto) 0.5 Neut % (Auto) 73.3 Lymph % (Auto) 14.3 [place] % (Auto) 11.0 Eos % (Auto) 0.4 Baso % (Auto) 0.5 Neut # (Auto) 9.44 H Lymph # (Auto) 1.84 [place] # (Auto) 1.42 H Eos # (Auto) 0.05 Baso # (Auto) 0.06 Immature Gran # (Auto) 0.06 ESR 56 H PT 10.4 INR 1.0 APTT 29 PTT Ratio 1.1 POC Sodium 137 Sodium 136 POC Potassium 4.3 Potassium 4.3 POC Chloride 102 Chloride 101 Carbon Dioxide 26 POC Total CO2 23 L Anion Gap 9 POC Anion Gap 18.0 POC BUN 32 H BUN 29 H Creatinine 1.47 H POC Creatinine 1.6 H Est Cr Clr Drug Dosing 63.5 eGFR 52.93 BUN/Creatinine Ratio 19.7 Glucose 157 H POC Glucose (other) 150 H Calcium 9.2 POC Ioniz Calcium Meghana 1.14 Magnesium 2.1 Total Bilirubin 0.6 AST 18 ALT 27 Alkaline Phosphatase 63 Troponin I High Sens 6.5 C-Reactive Protein 5.55 H Total Protein 8.0 Albumin 4.4 Globulin 3.6 Albumin/Globulin Ratio 1.2 Diagnostic Findings Chest X-Ray 08/14/25 16:43 EXAM: X-ray chest one-view portable CLINICAL HISTORY: Neurodeficit, acute stroke suspected, pain in head and upper back PRIORS: 02/14/2025, 03/27/2020 TECHNIQUE: Erect portable AP FINDINGS: The chest is well-expanded. No airspace consolidation, effusion or congestive changes. Heart size is normal. No pneumothorax. Trachea is patent. Osseous structures demonstrate no acute abnormality. No radiopaque foreign body. IMPRESSION: No plain film evidence of an acute cardiopulmonary process. Electronically signed by Kera Gomez 08-14-2025 6:[address] 08/14/25 16:43 Exam(s): CT HEAD Without Contrast EXAM: CT Head Without Intravenous Contrast CLINICAL HISTORY: Reason for exam: neuro deficit, acute stroke suspected. TECHNIQUE: Axial computed tomography images of the head/brain without intravenous contrast. CTDI is 36.31 mGy and DLP is 546.36 mGy-cm. Automated exposure control was utilized for the study. A dose lowering technique was utilized adhering to the principles of ALARA. Mild motion/artifact. COMPARISON: Head CT 03/27/2020 and MRI brain 11/23/2024. FINDINGS: Brain: Mild atrophy and mild, chronic white matter disease, stable. Small, chronic right medial thalamic lacunar infarct. No mass effect or acute infarct. No acute hemorrhage. Ventricles: No hydrocephalus or midline shift. Bones/joints: No skull fracture. Soft tissues: No scalp hematoma. Visualized Sinuses: Clear. Mastoid air cells: No mastoid effusion. IMPRESSION: 1. No acute intracranial abnormality. Electronically signed by: Christina Zelaya M.D. 08/14/25 21:00 PM Head CTA 08/14/25 16:43 Exam(s): CTA HEAD With Contrast IV Amt: 119ml opti 320 EXAM: CT Angiography Head With Intravenous Contrast CLINICAL HISTORY: Reason for exam: neuro deficit, acute stroke suspected. TECHNIQUE: Axial computed tomographic angiography images of the head with intravenous contrast. CTDI is 76.94 mGy and DLP is 1116.8 mGy-cm. Automated exposure control was utilized for the study. A dose lowering technique was utilized adhering to the principles of ALARA. MIP reconstructed images were created and reviewed. CONTRAST: Patient received 119ml opti 320 of IV contrast COMPARISON: Head CT same day. FINDINGS: Right internal carotid artery: Patent. Right anterior cerebral artery: Patent. Right middle cerebral artery: Patent. Right posterior cerebral artery: Patent. origin. Right vertebral artery: Patent. Left internal carotid artery: Patent. Left anterior cerebral artery: Patent. Left middle cerebral artery: Patent. Left posterior cerebral artery: Patent. origin. Left vertebral artery: Patent. Basilar artery: Patent. Other: IMPRESSION: 1. No aneurysm or large vessel occlusion. Electronically signed by: Christina Zelaya M.D. 08/14/25 21:02 PM Neck CTA 08/14/25 16:43 Exam(s): CTA NECK With Contrast IV Amt: 119ml opti 320 EXAM: CT Angiography Neck With Intravenous Contrast CLINICAL HISTORY: Reason for exam: neuro deficit, acute stroke suspected. TECHNIQUE: Routine carotid CT angiography protocol was performed with intravenous contrast. NASCET criteria using the distal ICAs for comparison were used for evaluation of stenoses. CTDI is 76.94 mGy and DLP is 1116.8 mGy-cm. Automated exposure control was utilized for the study. A dose lowering technique was utilized adhering to the principles of ALARA. MIP reconstructed images were created and reviewed. CONTRAST: Patient received 119ml opti 320 of IV contrast COMPARISON: None. FINDINGS: Right common carotid artery: Patent. Right internal carotid artery: Patent. Right vertebral artery: Patent. Left common carotid artery: Patent. Left internal carotid artery: Patent. Left vertebral artery: Patent. Left dominant system, though both vertebrals are diminutive due to normal variant [id number] anatomy. Other: No carotid atherosclerosis or stenosis. IMPRESSION: 1. No dissection, occlusion, or significant stenosis. CAROTID STENOSIS REFERENCE USING NASCET CRITERIA: % ICA stenosis = (1 - narrowest ICA diameter/diameter of distal cervical ICA) x 100. Mild - <50% stenosis. Moderate - 50-69% stenosis. Severe - 70-94% stenosis. Near occlusion - 95-99% stenosis. Occluded - 100% stenosis. Electronically signed by: Christina Zelaya M.D. 08/14/25 21:03 PM Medications Administered Promethazine 12.5 mg IV Morphine 4 mg IV Ketorolac 10 mg IV Diphenhydramine 25 mg IV Dexamethasone 10 mg IV ECG Additional Comments: NSR 100 bpm, NC 160, QRS 82, QT/QTc 334/430, PRT 0/5/-11 Code Status & VTE Plan Code Status Full Supervising Physician Co-Signing Physician Notes Attending addendum: I have physically seen this patient, have supervised the ALICIA's activities, and agree with the H&P unless as otherwise noted. Assessment and Plan: The patient is a 64-year-old male with a past medical history including adrenal adenoma, parkinsonism, BEN, RLS, status post nephrectomy secondary to multilocular cystic renal neoplasm, hypertension, and osteoarthritis. Who presents to the emergency department with complaint of headache and neck pain started leaking prior to arrival. Initial workup in the emergency department includes a CT scan of head which is negative, CTA of head and negative, CTA of the neck with negative. Significant abnormal laboratories creatinine 1.47. Baseline 1.10, glucose 157, ESR 56 and CRP 5.25. From the ED patient received the following: Phenergan 12.5 mg IV, Benadryl 25 mg IV, Toradol 10 mg IV, dexamethasone 10 mg IV, and morphine 4 mg IV. The patient's complaint of headaches extending from occipital to frontal area. Occipital frontalis headaches- No significant improvement with medications given in the ED CT head, CTA head and neck all negative MRI brain is ordered and pending EKG with normal sinus rhythm at 100 bpm, and no acute ST-T changes LR at 80 mL/h Ice pack as needed to the neck Acetaminophen 650 mg by mouth every 6 hours as needed for mild pain or fever Promethazine 10 mg IV every 6 hours as needed Benadryl 25 mg IV every 6 hours as needed Acute kidney injury- Status post nephrectomy of right kidney due to mass 03/17 Creatinine 1.47 on admission with base 1.10 IV fluids as noted above and recheck laboratories in a.m. Diabetes mellitus type Hold metformin Glucose 0.57 on admission Placed on Accu-Cheks with NovoLog SSI Parkinsonism- Continue carbidopa-levodopa Remaining orders and notations as noted PG Care Time/CCT Total # of Minutes Spent Total Time Spent with Patient: Total time spent is greater than 50% in coordination of care (as documented) at patient's floor/unit and/or counseling patient: Coding Level of Care Code 65015 INT INP/OBS CARE 3/75MIN Diagnoses Acute intractable headache R51.9 Neck pain M54.2 Renal insufficiency N28.9 Diabetes mellitus, type 2 E11.9
[2025-08-14] MEDS ORDERED: MELATONIN 3 MG TAB PO PRN (23:24)
[2025-08-14] MEDS ORDERED: ONDANSETRON INJ 2 MG/ML 2 ML VIAL IV PRN (23:24)
[2025-08-14] MEDS ORDERED: POLYETHYLENE (MIRALAX) 17 GM PACK PO PRN (23:24)
[2025-08-14] MEDS ORDERED: PROMETHAZINE 6.25 MG/50.25 ML BAG IV PRN (23:28)
[2025-08-14] MEDS ORDERED: diphenhydrAMINE Capsule 25 MG CAP PO PRN (23:28)
[2025-08-14] MEDS ORDERED: ACETAMINOPHEN 500 MG TAB PO PRN (23:28)
[2025-08-15] MEDS: LACTATED RINGER'S 1,000 ML IV SCH (00:48)
--- NOTE | 2025-08-15 02:26 | Magnetic Resonance Report ---
EXAM: MR brain wo con CLINICAL HISTORY: Head/neck pain, HTN TECHNIQUE: MRI of the brain was performed without contrast with multiplanar sequences obtained. COMPARISON: Comparison is made with prior 11/23/2024 FINDINGS: Brain Parenchyma: No evidence of acute infarction or hemorrhage. T2/FLAIR linear and rounded clustered hyperintensity in periventricular region of right parietal lobe, no diffusion restriction noted. Grossly unchanged. Possibly represents chronic ischemic changes/gliosis. Few tiny discrete FLAIR hyperintense foci are seen in subcortical and periventricular white matter of bilateral cerebral hemispheres, without diffusion restriction, representing chronic microvascular ischemic changes. Fazekas grade I. Stable T2 hyperintense focus in right basal ganglia, likely representing chronic infarct. Prominent perivascular spaces in bilateral basal ganglia again noted. Ventricles and Sulci: Prominent lateral ventricles, third ventricle, and fourth ventricle. Sylvian fissures, sulci, and cisterns are prominent. Posterior Fossa: Cerebellum and brainstem appear normal without evidence of mass lesions or signal abnormalities. Orbits and Skull Base: Orbits and skull base structures are normal without evidence of abnormalities. Incidental findings. Suggestion of mild dependent opacification of bilateral mastoid air cells. IMPRESSION: No evidence of acute infarction or hemorrhage. T2/FLAIR linear and rounded clustered hyperintensity in periventricular region of right parietal lobe, no diffusion restriction noted. Grossly unchanged. Possibly represents chronic ischemic changes/gliosis. Chronic microvascular ischemic changes, Fazekas grade I and senile cortical atrophy No significant interval changes since previous study. Electronically signed by Shelton Castle 08-15-2025 02:25 AM
[2025-08-15 06:04] LABS: Anion Gap 11.0 (3-11); Blood Urea Nitrogen 32.0 mg/dl (6-23); Calcium 9.4 mg/dl (8.6-10.3); Carbon Dioxide 24.0 mmol/L (21-32); Chloride 102.0 mmol/L (98-107); Creatinine Clr Calc Pharmacy 59.1 ml/min; Glucose 221.0 mg/dl (70-99(Fasting)); Potassium 4.4 mmol/L (3.5-5.1); Sodium 137.0 mmol/L (136-145)
[2025-08-15 07:19] VITALS: BP 175/94; RESP 20; TEMP 98.4; O2SAT 96
[2025-08-15] MEDS: CARBIDOPA/LEVODOPA 25/100MG TAB PO SCH (07:21)
[2025-08-15] MEDS: FINASTERIDE 5 MG TAB PO SCH (07:21)
[2025-08-15] MEDS: TAMSULOSIN HCL 0.4 MG CAP PO SCH (07:21)
[2025-08-15 08:52] LABS: Hemoglobin A1C 6.6 % (4.5-5.6)
--- NOTE | 2025-08-15 09:52 | Electrocardiogram Report ---
Test Reason : Blood Pressure : */* mmHG Vent. Rate : 100 BPM Atrial Rate : 100 BPM P-R Int : 160 ms QRS Dur : 82 ms QT Int : 334 ms P-R-T Axes : 0 5 -11 degrees QTcB Int : 430 ms Normal sinus rhythm Nonspecific ST abnormality Confirmed by Davide Hines ([id number]) on 08/15/2025 9:52:25 AM Referred By: REFERRED SELF Confirmed By: Davide Hines
--- NOTE | 2025-08-15 10:11 | Discharge Summary ---
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 #Intractable acute headache and neck pain Headache worsening over the weekend, no prior history of migraines except for in childhood. Received dexamethasone, diphenhydramine, ketorolac, promethazine, morphine in ED for pain, treated as migraine. Suspect mainly MSK given negative head CT, head/neck CTA & Brain MRI. Pain resolved in AM after treatment for migraine discussed cervical spine issues & to continue workup on outpatient basis if persists. Patient reports abnormal sleeping positions that cause his neck to hurt, recommend Flexeril q8h prn for muscle spasms on discharge. 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 Follows with nephro, most recent visit 07/27/2025, Cr at that time was elevated from his baseline, ? new baseline following nephrectomy Creat stable at 1.58, given no improvement after IVF, suspect new baseline. Continue to follow w/ nephro on dc. #T2DM H/o T2DM, at home regimen include metformin. continue A1c 6.6% #HTN- Amlodipine #PD- Carbidopa-levodopa - continue #Psych- Duloxetine - continue #- Finasteride, tamsulosin - continue #GERD- Omeprazole - continue #HLD- Rosuvastatin - continue Updated at bedside, patient discharged home 08/15. 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 Patient states that the pain actually started "weeks ago" and it was just a "wee little bit" that seem to have worsened over the weekend. States that he felt that his back needed to be put in so he went to his chiropractor and this was a few days ago and there was no neck manipulation. However, he was starting to have some more discomfort the day RETAIL AIDE and then there was some neck manipulation by his chiropractor but just a slight flexion of his neck without aggressive movements, per the patient. States that since then, his neck has just continued to become more tense rather than improved with pain. He does have a history of scoliosis so he thought that this was secondary to that, and he also reports sleeping on his neck in a "weird way "approximately 1 week RETAIL AIDE. States that the pain has started at the base of his skull and spread up towards the top of his head and into the front of his forehead and a line like fashion. Described as someone "sticking something in there all the time", but no nerve pain or electric pain otherwise. He has not had any visual changes. No focal deficits. He states at its worst, the pain is an 8 out of 10 on the pain scale, but at the present it is a 2 out of 10 on the pain scale. He has not had any nausea or vomiting with this. He states that he has a history of migraines occurring when he was approximately 5 to 6 years old but has not had anything since then. He has not had any recent trauma or impact to his head. Sometimes when he sleeps on his neck in an abnormal position, he will wake up with back pain. States that this is possibly what started it, but it just has not gotten better. He is not having any URI symptoms or fever/chills. When he gets up to walk, the pain is worsened. It was spreading to his bilateral shoulders, this has resolved some and he is able to lift his arms above his shoulders now 1 point exactly where the pain is. No changes otherwise. He did have a right nephrectomy in February 2025 after there was a mass found thought to be cancer, it was removed and patient has been stable since. He follows with nephrology and did have a recently elevated creatinine, so li sinopril was discontinued. Patient states that he is without chest pain, SOB, palpitations, abdominal pain, N/B/D/C, numbness/tingling, fever/chills, URI symptoms, LUTS, weakness, syncope, or falls. ED evaluation revealed CBC with leukocytosis 12.7, H&H 14.1/41.2, stable platelets; ESR 56, CRP 5.55; PT/INR WNL; CMP BUN 29, creatinine 1.47, glucose 157; troponin 6.5; magnesium 2.1, calcium 9.2; CXR no acute findings; head CT no acute findings; head CTA no aneurysm or LVO; neck CTA no dissection, occlusion, or significant stenosis; EKG NSR at 100 bpm.; Provided with promethazine 12.5 mg IV, morphine 4 mg IV, ketorolac 10 mg IV, diphenhydramine 25 mg IV, dexamethasone 10 mg IV in ED. Please see Dr. Morris attestation for adjustments/additions to treatment plan. Discharge Exam General: NAD, VS: BP 175/94; P91; R10; T36.9C Resp: normal respiratory effort Extremities: Moves all extremities, no edema Neuro: A&O x3 Skin: intact, no lesions noted Discharge Plan Discharge Items Patient Disposition: Home - Self-Care Reason For Visit: INTRACTABL HEAD/NECK PAIN Discharge Diagnosis: Migraine Activity: Resume your previous activity Non-emergency contact: Primary Care Provider Call non-emergency contact if: you have any medication questions, your symptoms worsen, your pain is not controlled, your pain is worsening and your pain is unu sual for you Follow-up/Referrals: Brittany Mansfield [Primary Care Provider] - Diet: Carb Consistent or DM2 Addtl Attending Provider Instructions: Mr. Marks, Neno were recently hospitalized overnight secondary to head and neck pain. Your imaging of your brain was negative, including a brain MRI. Your symptoms resolved with medications that were given to you. Your severe head pain is thought to be referred pain from your neck. If this continues to recur, please discuss further imaging of your cervical spine with your PCP on an outpatient basis. Medications: Your medication list has been reviewed and reconciled upon discharge to ensure accuracy and continuity of care. An updated list of all your medications is included with your hospital discharge paperwork. Please review this list closely, and make note of any changes. Please use Cyclobenzaprine every 8 hours as needed for neck spasm. Take your medications as instructed; do not skip a dose of your medicines. Make sure all of your doctors know every medicine you are taking (including awrd-thx-hoqowic medicines, vitamins, and supplements). Call your primary care provider before taking any new medicines (including over- the-counter medicines, vitamins, and supplements), because some of these may interact with your current medications, or may make your symptoms worse. Tell your primary care provider if you cannot afford your medications. Activity: You can do normal everyday activities as your body allows. Take rest breaks if you feel tired. Do not overexert. Stop activity if you have pain, shortness of breath or feel dizzy. Follow-up appointments: Make an appointment with your primary care physician within one week of discharge. A copy of this summary will be sent to them. Every time you see your primary care physician, or any other doctor, bring your medication list, and a list of questions. CONTACT YOUR PRIMARY CARE PROVIDER if you experience any of the following: Shortness of breath or difficulty breathing Fevers or chills Feeling tired with normal activity or experiencing dizziness or fainting Difficulty following your treatment plan, or difficulty taking medications CALL 911 OR GO TO THE EMERGENCY DEPARTMENT if you experience any of the following: Severe abdominal pain or nausea/vomiting Severe chest pain, or chest pain that radiates (moves) to your jaw or arm Sudden, severe shortness of breath or difficulty breathing Thank you for allowing us to participate in your care. Pending Studies at Discharge: No Stand-Alone Forms: My [facility], Smoking Cessation Medications and DC Order Prescriptions: New cyclobenzaprine 5 mg tablet 5 mg PO TID PRN (Reason: muscle spasm) Qty: 30 0RF Continued duloxetine 60 mg capsule,delayed release(DR/EC) 60 mg PO QAM rosuvastatin 5 mg tablet 5 mg PO HS tamsulosin 0.4 mg capsule 0.4 mg PO DAILY Qty: 90 3RF carbidopa-levodopa 25-100 mg tablet 1 tab PO TID Qty: 270 3RF metformin 750 mg tablet 500 mg PO BID amlodipine 5 mg tablet 5 mg PO DAILY Qty: 90 3RF cyanocobalamin (vitamin B-12) PO finasteride 5 mg tablet 5 mg PO DAILY omeprazole 20 mg capsule,delayed release(DR/EC) 20 mg PO QAM Discharge Orders: Discharge Order (Routine); Ordered 08/15/25 Ordered By: Kelli Sanchez/Other Patient Handouts: Managing Type 2 Diabetes Admission Data Admit Date/Time: 08/14/25 23:07 Attending Provider: Marcelo Bates Admit Provider: Titi Morris Primary Care Provider: Brittany Mansfield Other Providers: Titi Morris Other Interventions: Discharge Summary Assessment (RN) Last Done: 08/15/25 10:16 Hospital Stay Data Consultations 08/14/25 22:10 ED Decision to Admit Stat Diagnostic Imagining Performed 08/14/25 16:43 CT angio head w con Stat CT angio neck with con Stat CT head/brain wo con Stat 08/14/25 23:07 MRI Brain [MR brain wo con] Stat Pending Results Patient Have Any Pending Studies at Discharge: No Discharge Instructions Given to Patient (Per Discharging Provider) Mr. Marks, Neno were recently hospitalized overnight secondary to head and neck pain. Your imaging of your brain was negative, including a brain MRI. Your symptoms resolved with medications that were given to you. Your severe head pain is thought to be referred pain from your neck. If this continues to recur, please discuss further imaging of your cervical spine with your PCP on an outpatient basis. Medications: Your medication list has been reviewed and reconciled upon discharge to ensure accuracy and continuity of care. An updated list of all your medications is included with your hospital discharge paperwork. Please review this list closely, and make note of any changes. Please use Cyclobenzaprine every 8 hours as needed for neck spasm. Take your medications as instructed; do not skip a dose of your medicines. Make sure all of your doctors know every medicine you are taking (including yoei-utg-mezyjzp medicines, vitamins, and supplements). Call your primary care provider before taking any new medicines (including over- the-counter medicines, vitamins, and supplements), because some of these may interact with your current medications, or may make your symptoms worse. Tell your primary care provider if you cannot afford your medications. Activity: You can do normal everyday activities as your body allows. Take rest breaks if you feel tired. Do not overexert. Stop activity if you have pain, shortness of breath or feel dizzy. Follow-up appointments: Make an appointment with your primary care physician within one week of discharge. A copy of this summary will be sent to them. Every time you see your primary care physician, or any other doctor, bring your medication list, and a list of questions. CONTACT YOUR PRIMARY CARE PROVIDER if you experience any of the following: Shortness of breath or difficulty breathing Fevers or chills Feeling tired with normal activity or experiencing dizziness or fainting Difficulty following your treatment plan, or difficulty taking medications CALL 911 OR GO TO THE EMERGENCY DEPARTMENT if you experience any of the following: Severe abdominal pain or nausea/vomiting Severe chest pain, or chest pain that radiates (moves) to your jaw or arm Sudden, severe shortness of breath or difficulty breathing Thank you for allowing us to participate in your care. Total Time Total Time Spent Total Time Spent (In Minutes): 45 Total Time Includes: Examination of the Patient, Discharge Planning and Medication Reconciliation Coding Level of Care Code 62546 INP/OBS DISCH >30 MIN Diagnoses Acute intractable headache R51.9 Neck pain M54.2 Renal insufficiency N28.9 Diabetes mellitus, type 2 E11.9
[2025-08-15 10:18] VITALS: PULSE 91
[2025-08-15] MEDS ORDERED: ROSUVASTATIN CALCIUM 5 MG TAB PO SCH (21:00)
== END 2025-08-15 10:41 | disposition home or self-care (01) ==
LOC: EDINP 16:21 → ED 16:21 → SUATTDRO 23:07 → EDINP 23:25